=== PATIENT | male | born 1975 | race Caucasian/White ===

== ENCOUNTER 2019-04-29 07:39 | Outpatient (CLI) | payer OTHER, SELFPAY ==
[2019-04-29 09:15] LABS: ALT 154 U/L (16-63); AST 58 U/L (15-37); Albumin 4.7 g/dL (3.4-5.0); Alkaline Phosphatase 102 U/L (46-116); BUN 21 mg/dL (7-18); Bilirubin, Total 0.9 mg/dL (0.2-1.0); CREATININE 1.32 mg/dL (0.70-1.30); Calcium 9.8 mg/dL (8.5-10.1); Chloride 105 mmol/L (98-107); Estimated GFR 58.65 (mL/min/1.73m2); Glucose 89 mg/dL (74-106); Magnesium 2.2 mg/dL (1.8-2.4); Sodium 142 mmol/L (136-145); TSH (W/Ref FT4) 2.87 uIU/mL (0.36-3.74); Total Protein 7.9 g/dL (6.4-8.2)
[2019-05-01 05:25] LABS: Testosterone, Total 190 ng/dL (240-950)
== END 2019-04-29 07:59 ==
PROVIDERS: PCP Family Medicine; Visit Provider Family Medicine
DX: I10 Essential (primary) hypertension (principal); R25.2 Cramp and spasm; B35.1 Tinea unguium; R53.83 Other fatigue; Z85.47 Personal history of malignant neoplasm of testis
CPT/HCPCS: 36415; 80053; 84403; 83735; 84443

== ENCOUNTER 2019-09-11 02:43 | Outpatient (CLI) | payer OTHER, SELFPAY ==
[2019-09-11 08:59] LABS: HCT 46.4 % (40.0-50.0); HGB 16.5 g/dL (13.5-17.5); Mean Corp. HGB Concentration 35.6 g/dL (32.0-36.0); Mean Corpuscular Hemoglobin 31.7 pg (27.0-33.0); Mean Corpuscular Volume 89.1 fL (80-95); Platelet Count 208 x1000/uL (130-400); RBC 5.21 m/cumm (4.50-6.00); RBC Distribution Width 12.7 % (11.8-14.1); White Blood Cell Count 6.44 k/cumm (4.4-10.8)
[2019-09-11 09:12] LABS: COMMENT (LAB VIEW ONLY) 15.31 mg/dL
[2019-09-11 09:19] LABS: PROTEIN < 6.0 mg/dL
[2019-09-11 09:53] LABS: ALT 139 U/L (16-63); AST 59 U/L (15-37); Albumin 4.4 g/dL (3.4-5.0); Alkaline Phosphatase 100 U/L (46-116); Anion Gap 10.7 mmol/L (3-11); BUN 17 mg/dL (7-18); Bilirubin, Total 0.6 mg/dL (0.2-1.0); CO2 25.3 mmol/L (21.0-32.0); CREATININE 1.06 mg/dL (0.70-1.30); Calcium 9.5 mg/dL (8.5-10.1); Chloride 104 mmol/L (98-107); Ferritin 128 ng/mL (26-388); Glucose 81 mg/dL (74-106); Potassium 4.7 mmol/L (3.5-5.1); Sodium 140 mmol/L (136-145); Total Protein 7.4 g/dL (6.4-8.2)
[2019-09-12 09:58] LABS: Hepatitis B Surface Ag Negative (Negative)
[2019-09-12 10:40] LABS: Hepatitis C Ab w Rflx HCV PCR Negative (Negative)
[2019-09-22 10:25] LABS: Testosterone, Free 5.77 ng/dL (4.26-16.4); Testosterone, Total 186 ng/dL (240-950)
== END 2019-09-11 03:03 ==
PROVIDERS: PCP Family Medicine; Visit Provider Family Medicine
DX: R74.0 Nonspecific elevation of levels of transaminase and lactic acid dehydrogenase [LDH] (principal); N28.9 Disorder of kidney and ureter, unspecified; E29.1 Testicular hypofunction; Z11.59 Encounter for screening for other viral diseases
CPT/HCPCS: 36415; 80053; 84402; 84403; 85027; 86803; 87340; 82565; 82728; 84156

== ENCOUNTER 2019-12-18 01:42 | Outpatient (CLI) | payer OTHER, SELFPAY ==
--- NOTE | 2019-12-18 | DI.US_ITS ---
EXAM: US ABDOMEN CLINICAL HISTORY: ELEVATED TRANSAMINASES,R74.0,? FATTY LIVER OR FIBROSIS TECHNIQUE: Ultrasound abdomen performed using standard protocol. COMPARISON: No exams were available for comparison FINDINGS: ABDOMINAL AORTA AND IVC: Visualized portions normal caliber. PANCREAS: Normal where visualized. LIVER: Diffuse increased echogenicity consistent with fatty infiltration. Hepatopedal flow in the Po rtal Vein. The liver measures 15.4 cm in length. GALLBLADDER: No evidence of cholelithiasis. No evidence of wall thickening. No pericholecystic fluid identified. BILIARY SYSTEM: Common bile duct measures < 7 mm. No intrahepatic biliary ductal dilation. OLGUIN'S SIGN: Negative. KIDNEYS: Kidneys are symmetric in size. No evidence of renal calculi. No evidence of hydronephrosis. No renal mass or cyst identified. SPLEEN: Upper limits of normal in size. ASCITES: None seen. IMPRESSION: Fatty infiltration of the liver. DATA REPOSITORY:
== END 2019-12-18 02:02 ==
PROVIDERS: PCP Family Medicine; Visit Provider Family Medicine
DX: K76.0 Fatty (change of) liver, not elsewhere classified (principal)
CPT/HCPCS: 76700

== ENCOUNTER 2020-01-13 17:15 | Outpatient (REF) | payer OTHER, SELFPAY ==
[2020-01-15 14:40] LABS: PSA, Screening 0.3 ng/mL (0-2.5)
== END 2020-01-13 17:35 ==
LOC: NCHCN 17:15
PROVIDERS: PCP Family Medicine; Visit Provider Family Medicine
DX: E29.1 Testicular hypofunction (principal)
CPT/HCPCS: 84153

== ENCOUNTER 2020-05-26 03:40 | Outpatient (CLI) | payer BC, SELFPAY ==
[2020-05-26 09:17] LABS: ALT 78 U/L (16-63); AST 57 U/L (15-37); Albumin 4.4 g/dL (3.4-5.0); Alkaline Phosphatase 87 U/L (46-116); Bilirubin, Direct 0.2 mg/dL (0.0-0.2); Bilirubin, Total 0.8 mg/dL (0.2-1.0); Total Protein 7.9 g/dL (6.4-8.2)
[2020-05-26 09:35] LABS: HGB 17.1 g/dL (13.5-17.5); MCHC 33.5 % (32.0-36.0); MCV 86.4 fL (80-95); MPV 11.2 fL (8.0-11.0); Platelet Count 245 10^3/uL (130-400); RDW 12.6 % (11.8-14.1); RDW-SD 39.8 fL; WBC 7.69 10^3/uL (4.4-10.8)
[2020-05-28 11:34] LABS: Testosterone, Total 732 ng/dL (240-950)
== END 2020-05-26 03:41 | disposition home or self-care (01) ==
LOC: LBO 03:40
PROVIDERS: PCP Family Medicine; Visit Provider Family Medicine
DX: E29.1 Testicular hypofunction (principal); K76.0 Fatty (change of) liver, not elsewhere classified
CPT/HCPCS: 36415; 80076; 84403; 85027

== ENCOUNTER 2021-04-28 15:36 | Outpatient (REF) | payer BC, SELFPAY | END 2021-04-28 15:37 | disposition home or self-care (01) | LOC: NCHCN 15:36 | PROVIDERS: PCP Family Medicine; Visit Provider Family Medicine | DX: R07.0 Pain in throat (principal) | CPT/HCPCS: 87070 ==

== ENCOUNTER 2021-06-29 05:54 | Outpatient (CLI) | payer BC, SELFPAY | END 2021-06-29 05:55 | disposition home or self-care (01) | LOC: LBO 05:56 | PROVIDERS: PCP Family Medicine; Visit Provider Family Medicine ==

== ENCOUNTER 2021-07-12 01:32 | Outpatient (CLI) | payer BC, SELFPAY ==
[2021-07-12 07:23] LABS: HCT 54.8 % (40.0-50.0); HGB 18.6 g/dL (13.5-17.5); MCH 30.4 pg (27.0-33.0); MCHC 33.9 % (32.0-36.0); MCV 90 fL (80-95); MPV 10.3 fL (8.0-11.0); Platelet Count 237 10^3/uL (130-400); RBC 6.12 10^6/uL (4.36-5.78); RDW 12.8 % (11.8-14.1); RDW-SD 41.5 fL; WBC 7.11 10^3/uL (4.4-10.8)
[2021-07-12 08:16] LABS: ALT 56 U/L (16-63); AST 33 U/L (15-37); Albumin 4.7 g/dL (3.4-5.0); Alkaline Phosphatase 81 U/L (46-116); Anion Gap 7.9 mmol/L (3-11); BUN 16 mg/dL (7-18); CO2 29.1 mmol/L (21.0-32.0); CREATININE 1.4 mg/dL (0.70-1.30); Calcium 9.5 mg/dL (8.5-10.1); Chloride 101 mmol/L (98-107); Estimated GFR 54.32 (mL/min/1.73m2); Glucose 73 mg/dL (74-106); Potassium 4.3 mmol/L (3.5-5.1); Sodium 138 mmol/L (136-145); Total Protein 7.9 g/dL (6.4-8.2)
[2021-07-12 19:13] LABS: PSA, Screening 0.8 ng/mL (<=2.5)
[2021-07-15 14:16] LABS: Testosterone, Free 17.6 ng/dL (4.26-16.4); Testosterone, Total 463 ng/dL (240-950)
== END 2021-07-12 01:33 | disposition home or self-care (01) ==
LOC: LBO 01:32
PROVIDERS: PCP Family Medicine; Visit Provider Family Medicine
DX: E29.1 Testicular hypofunction (principal); K76.0 Fatty (change of) liver, not elsewhere classified; Z12.5 Encounter for screening for malignant neoplasm of prostate
CPT/HCPCS: 36415; 80053; 84153; 84402; 84403; 85027

== ENCOUNTER 2021-12-15 10:05 | Outpatient (CLI) | payer BC, SELFPAY ==
--- NOTE | 2021-12-15 09:45 | DI.RAD_ITS ---
Exam(s) XR KNEE RT 3V AP,LAT,KEHINDE EXAM: XR KNEE RT 3V AP,LAT,KEHINDE CLINICAL HISTORY: right knee pain TECHNIQUE: COMPARISON: No exams were available for comparison FINDINGS: Four views were obtained. There is probable small knee joint effusion noted on the lateral view. Th ere may be slight narrowing of the medial tibiofemoral cartilaginous joint space, presumably on a deg enerative basis. No other bony or soft tissue abnormality seen. IMPRESSION: RADIATION DOSE DELIVERED: Total DLP
== END 2021-12-15 10:06 | disposition home or self-care (01) ==
LOC: DIORS 10:05
PROVIDERS: PCP Family Medicine; Referring Provider Family Medicine; Visit Provider Student in an Organized Health Care Education/Training Program
DX: M25.561 Pain in right knee (principal)
CPT/HCPCS: 73562

== ENCOUNTER 2022-02-01 04:07 | Outpatient (CLI) | payer BC, SELFPAY ==
[2022-02-01 07:42] LABS: Abs Immature Grans 0.04 10^3/uL (0.0-0.06); Absolute Basophil Count 0.04 10^3/uL (0.0-0.2); Absolute Eosinophil Count 0.18 10^3/uL (0.0-0.7); Absolute Lymphocyte Count 2.12 10^3/uL (1.2-3.4); Absolute Monocyte Count 0.53 10^3/uL (0.1-0.8); Absolute Neutrophil Count 3.34 10^3/uL (1.2-6.7); Basophils % 0.6; Eosinophils % 2.9; HCT 48.4 % (40.0-50.0); HGB 17.6 g/dL (13.5-17.5); Immature Grans % 0.6; Lymphocytes % 33.9; MCH 32.2 pg (27.0-33.0); MCHC 36.4 % (32.0-36.0); MCV 89 fL (80-95); MPV 10.9 fL (8.0-11.0); Monocytes % 8.5; Neutrophils % 53.5; Platelet Count 199 10^3/uL (130-400); RBC 5.46 10^6/uL (4.36-5.78); RDW-SD 38.9 fL; WBC 6.25 10^3/uL (4.4-10.8)
[2022-02-04 14:38] LABS: Testosterone, Free 3.08 ng/dL (4.26-16.4); Testosterone, Total 85 ng/dL (240-950)
== END 2022-02-01 04:08 | disposition home or self-care (01) ==
LOC: LBO 04:07
PROVIDERS: PCP Family Medicine; Visit Provider Family Medicine
DX: D75.1 Secondary polycythemia (principal); E29.1 Testicular hypofunction
CPT/HCPCS: 36415; 84402; 84403; 85025

== ENCOUNTER 2023-05-12 01:27 | Outpatient (CLI) | payer OTHER, SELFPAY ==
[2023-05-12 08:17] LABS: HCT 52.3 % (40.0-50.0); HGB 18.6 g/dL (13.5-17.5); MCH 31.7 pg (27.0-33.0); MCHC 35.6 % (32.0-36.0); MCV 89 fL (80-95); MPV 10.3 fL (8.0-11.0); Platelet Count 193 10^3/uL (130-400); RBC 5.87 10^6/uL (4.36-5.78); RDW 12.7 % (11.8-14.1); RDW-SD 41.7 fL; WBC 6.39 10^3/uL (4.4-10.8)
[2023-05-12 08:40] LABS: ALT 73 U/L (16-63); AST 31 U/L (15-37); Albumin 4.9 g/dL (3.4-5.0); Alkaline Phosphatase 86 U/L (46-116); Anion Gap 9.5 mmol/L (3-11); BUN 13 mg/dL (7-18); Bilirubin, Total 1.1 mg/dL (0.2-1.0); CO2 27.5 mmol/L (21.0-32.0); CREATININE 1.3 mg/dL (0.70-1.30); Calcium 9.9 mg/dL (8.5-10.1); Calculated LDL 69 mg/dL (<100); Chloride 102 mmol/L (98-107); Cholesterol 184 mg/dL (<200); Estimated GFR 67.34 (mL/min/1.73m2); Glucose 108 mg/dL (74-106); HDL Cholesterol 60 mg/dL (40-60); Potassium 3.5 mmol/L (3.5-5.1); Sodium 139 mmol/L (136-145); Total Protein 8.5 g/dL (6.4-8.2); Triglyceride 277 mg/dL (<150)
[2023-05-13 10:17] LABS: HIV-1/2 Ag & Ab Screen Negative (Negative)
[2023-05-15 09:27] LABS: Syphilis Serology (RPR) Negative (Negative)
[2023-05-15 10:37] LABS: HBs Antibody, Quant <3.1 mIU/mL (See Note); Hepatitis B Surface Ab Negative (See Note)
[2023-05-15 10:47] LABS: Hepatitis B Surface Ag Negative (Negative)
[2023-05-19 15:44] LABS: Testosterone, Free 14.5 ng/dL (4.26-16.4); Testosterone, Total 412 ng/dL (240-950)
== END 2023-05-12 01:28 | disposition home or self-care (01) ==
PROVIDERS: PCP Family Medicine; Visit Provider Family Medicine
DX: D75.1 Secondary polycythemia (principal); E29.1 Testicular hypofunction; N28.9 Disorder of kidney and ureter, unspecified; K76.0 Fatty (change of) liver, not elsewhere classified
CPT/HCPCS: 36415; 80053; 80061; 84402; 84403; 85027; 86706; 87340; 87389; 85025; 86592

== ENCOUNTER 2023-09-08 15:40 | Outpatient (REF) | payer OTHER, SELFPAY ==
[2023-09-08 20:31] LABS: HCT 45.7 % (40.0-50.0); MCH 31.2 pg (27.0-33.0); MCV 89 fL (80-95); MPV 11.7 fL (8.0-11.0); Platelet Count 264 10^3/uL (130-400); RBC 5.13 10^6/uL (4.36-5.78); RDW 12.3 % (11.8-14.1); RDW-SD 40.3 fL; WBC 7.13 10^3/uL (4.4-10.8)
[2023-09-08 20:44] LABS: Anion Gap 8.1 mmol/L (3-11); BUN 18 mg/dL (7-18); CO2 28.9 mmol/L (21.0-32.0); CREATININE 1.5 mg/dL (0.70-1.30); Calcium 9.7 mg/dL (8.5-10.1); Chloride 101 mmol/L (98-107); Estimated GFR 56.37 (mL/min/1.73m2); Glucose 97 mg/dL (74-106); Potassium 4.8 mmol/L (3.5-5.1); Sodium 138 mmol/L (136-145)
[2023-09-11 09:57] LABS: PSA, Screening 0.7 ng/mL (<=3.5)
== END 2023-09-08 15:41 | disposition home or self-care (01) ==
LOC: NCHCN 15:40
PROVIDERS: PCP Family Medicine; Visit Provider Family Medicine
DX: D75.1 Secondary polycythemia (principal); I10 Essential (primary) hypertension; Z12.5 Encounter for screening for malignant neoplasm of prostate; Z19.1 Hormone sensitive malignancy status
CPT/HCPCS: 80048; 84153; 85027

== ENCOUNTER 2024-11-18 16:33 | Outpatient (REF) | payer OTHER, SELFPAY ==
[2024-11-18 21:11] LABS: HCT 43.2 % (40.0-50.0); HGB 15.4 g/dL (13.5-17.5); MCH 32.2 pg (27.0-33.0); MCHC 35.6 % (32.0-36.0); MCV 90 fL (80-95); MPV 11.2 fL (8.0-11.0); Platelet Count 217 10^3/uL (130-400); RBC 4.78 10^6/uL (4.36-5.78); RDW 11.8 % (11.8-14.1); RDW-SD 38.8 fL; WBC 6.42 10^3/uL (4.4-10.8)
[2024-11-18 21:29] LABS: ALT 56 U/L (16-63); AST 33 U/L (15-37); Albumin 4.6 g/dL (3.4-5.0); Alkaline Phosphatase 88 U/L (46-116); Anion Gap 8.0 mmol/L (3-11); BUN 14 mg/dL (7-18); Bilirubin, Total 0.5 mg/dL (0.2-1.0); CO2 29.0 mmol/L (21.0-32.0); Calcium 9.6 mg/dL (8.5-10.1); Chloride 103 mmol/L (98-107); Estimated GFR 66.51 (mL/min/1.73m2); Glucose 123 mg/dL (74-106); Potassium 4.2 mmol/L (3.5-5.1); Sodium 140 mmol/L (136-145); TSH (W/Ref FT4) 1.38 uIU/mL (0.36-3.74); Total Protein 7.6 g/dL (6.4-8.2)
== END 2024-11-18 16:34 | disposition home or self-care (01) ==
LOC: NCHCN 16:33
PROVIDERS: PCP Family Medicine; Visit Provider Internal Medicine
DX: R53.83 Other fatigue (principal)
CPT/HCPCS: 80053; 85027; 84443